=== PATIENT | female | born 2000 | race Caucasian/White ===

== ENCOUNTER 2022-08-21 08:55 | Emergency (ER) | payer SELFPAY ==
[2022-08-21 09:05] VITALS: BP 139/86; PULSE 99; TEMP 37.4; O2SAT 95; BMI 33.3
[2022-08-21] MEDS: ondansetron 2 mg/ML SDV 2 mL 4 MG IVP (09:35)
[2022-08-21] MEDS: sodium chloride 0.9% 1,000 ML 999 ML IV (09:37)
[2022-08-21 09:40] LABS: Add Urine Microscopic? YES; Bilirubin Urine Neg (Negative); Blood Urine 3+ (Negative); Glucose Urine UA Norm (Normal); Ketones Urine 2+ (Negative); Leukocyte Esterase Urine 1+ (Negative); Nitrate Urine Negative (Negative); Protein Urine Neg (Negative); Specific Gravity, Urine 1.025 (1.005-1.030); Urine Appearance SL Hazy (CLEAR); Urine Color Amber (Yellow); Urobilinogen Urine Norm (Negative); pH Urine 5 (5-7)
[2022-08-21 09:45] LABS: Add Urine Culture? Yes; Bacteria Urine 4+ /hpf; WBC Urine 0-4 /hpf (0-5)
[2022-08-21 09:50] LABS: Basophils % 0.2 %; Hematocrit 47.9 % (37.0-47.0); Hemoglobin 15.7 g/dL (11.5-15.3); Lymphocytes # 1.9 10^3/uL (0.8-4.8); Lymphocytes % 29.6 %; Mean Corpuscular HGB Conc 32.8 g/dL (30.0-36.0); Mean Corpuscular Hemoglobin 27.6 pg (28.0-34.0); Mean Corpuscular Volume 84.3 fl (81-99); Mean Platelet Volume 8.9 fL (7.4-10.4); Monocytes # 0.8 10^3/uL (0.2-0.9); Monocytes % 12.2 %; Neutrophils # 3.75 10^3/uL (1.8-7.7); Neutrophils % 57.7 %; Nucleated Red Blood Cells % 0 %; Platelet Count 322 10^3/cmm (130-400); Red Blood Count 5.68 10^6/uL (4.1-5.3); White Blood Count 6.5 10^3/uL (4.0-10.0)
--- NOTE | 2022-08-21 09:54 | ED_ITS ---
HPI - Nausea/Vomiting/Diarrhea General: Chief complaint: Nausea/Vomiting/Diarrhea Stated complaint: possible dehydration Time Seen by Provider: 08/21/22 09:09 History of Present Illness: Patient is a 22-year-old female comes to the ED with nausea and vomiting. Patient says approximately a week ago she started having decreased appetite, upper respiratory symptoms and fever. She also developed nausea and vomiting. She had multiple episodes of nausea and vomiting and was having trouble keeping any food or fluids for the past couple days. She feels like now she is very dehydrated. She tried to drink some p.o. fluids this morning and threw them back. Endorses feeling fatigued. Patient endorses being a daily delta 8 CBD user for pain and headaches. Denies any abdominal pain, diarrhea, bladder or bowel symptoms. Associated nausea: Yes Associated symtoms: Reports nausea; Denies change in vision, chest pain, dysuria, fatigue, headache(s) or palpitations Review of Systems Const: Denies: fever(s), chills or fatigue Eyes: Denies: change in vision or eye discomfort ENMT: Denies: throat pain, odynophagia, nasal discharge or nasal congestion Card: Denies: chest pain, palpitations, edema, swelling of feet/ankles, dyspnea on exertion or orthopnea Resp: Denies: dyspnea, productive cough or non-productive cough GI: Reports: nausea and vomiting; Denies: abdominal pain, diarrhea, constipation or hematochezia : Denies: flank pain, dysuria or hematuria Musc: Denies: neck pain, back pain or extremity swelling Skin/Breast: Denies: rash or new lesions Neuro: Denies: headache(s), numbness in extremities or weakness in extremities PFS ED PFSH: Medical History (Updated 08/21/22 @ 11:25 by CHARLES Cummings) No pertinent family history Surgical History (Updated 08/21/22 @ 09:57 by CHARLES Cummings) No pertinent past surgical history Physical Exam Const: COMMON NORMALS: no acute distress, patient oriented x3 and alert GENERAL APPEARANCE: cooperative and comfortable HENMT: COMMON NORMALS: normocephalic HEAD & SCALP: normocephalic MOUTH: Normal oral and palatal mucosa present and moist mucous membranes abnormal Details: parched THROAT: posterior oropharynx normal and uvula midline Neck/C-Spine: COMMON NORMALS: supple GENERAL: Yes normal visual inspection Resp: COMMON NORMALS: normal respiratory effort, No retractions, No use of accessory muscles and clear to auscultation bilaterally AUSCULTATION: clear to auscultation bilaterally Cardio: COMMON NORMALS: regular rate, regular rhythm, S1 normal heart sound present, S2 normal heart sound present, No gallops present (Cardio), No clicks present (Cardio), No murmurs present (Cardio) and Peripheral pulses 2+ throughout RATE: regular rate RHYTHM: regular rhythm HEART SOUNDS: S1 normal heart sound present and S2 normal heart sound present PERIPHERAL PULSES: Peripheral pulses 2+ throughout GI: COMMON NORMALS: Normal to inspection, nondistended, normoactive bowel sounds present, Soft to palpation, non-tender and no masses PALPATION: Yes Soft to palpation : COMMON NORMALS: Yes no CVA tenderness BLADDER/KIDNEY EXAM: Yes no CVA tenderness Back/Pelvis: COMMON NORMALS: no CVA tenderness Extremity: COMMON NORMALS: normal to inspection Neuro: COMMON NORMALS: patient oriented x3 SENSORIUM/ORIENTATION: Yes alert GAIT: Yes Normal gait present Skin: GENERAL SKIN EXAM: dry skin Course Vital Signs: Vital signs: Vital Signs Temperature 99.3 F 08/21/22 09:05 Pulse Rate 83 08/21/22 12:05 Respiratory Rate 16 08/21/22 12:05 Blood Pressure 137/90 08/21/22 11:09 Pulse Oximetry 99 08/21/22 12:05 Oxygen Delivery Me thod 08/21/22 11:09 MDM - Nausea/Vomiting/Diarrhea Medical Decision Making atient is a 22-year-old female comes to the ED with nausea and vomiting. Soo mason says approximately a week ago she started having decreased appetite, upper respiratory symptoms and fever. She also developed nausea and vomiting. She had multiple episodes of nausea and vomiting and was having trouble keeping any food or fluids for the past couple days. She feels like now she is very dehydrated. Vitals are stable and exam with labs are unremarkable. Patient was given 1 L of IV fluids and Zofran and her symptoms improved. She is able to tolerate p.o. fluids here in the ED. She was stable for discharge home and diagnosed with dehydration and viral syndrome. Lab Data I reviewed the patient's lab results. 08/21/22 09:35 08/21/22 09:35 Laboratory Results WBC 6.5 10^3/uL (4.0-10.0) 08/21/22 09:35 RBC 5.68 10^6/uL (4.1-5.3) H 08/21/22 09:35 Hgb 15.7 g/dL (11.5-15.3) H 08/21/22 09:35 Hct 47.9 % (37.0-47.0) H 08/21/22 09:35 MCV 84.3 fl (81-99) 08/21/22 09:35 MCH 27.6 pg (28.0-34.0) L 08/21/22 09:35 MCHC 32.8 g/dL (30.0-36.0) 08/21/22 09:35 RDW 13.0 % (12.1-15.1) 08/21/22 09:35 Plt Count 322 10^3/cmm (130-400) 08/21/22 09:35 MPV 8.9 fL (7.4-10.4) 08/21/22 09:35 Neut % (Auto) 57.7 % 08/21/22 09:35 Lymph % (Auto) 29.6 % 08/21/22 09:35 Carbon % (Auto) 12.2 % 08/21/22 09:35 Eos % (Auto) 0.0 % 08/21/22 09:35 Baso % (Auto) 0.2 % 08/21/22 09:35 Neut # (Auto) 3.75 10^3/uL (1.8-7.7) 08/21/22 09:35 Lymph # (Auto) 1.9 10^3/uL (0.8-4.8) 08/21/22 09:35 Carbon # (Auto) 0.8 10^3/uL (0.2-0.9) 08/21/22 09:35 Eos # (Auto) 0.0 10^3/uL (0.0-0.8) 08/21/22 09:35 Baso # (Auto) 0.0 10^3/uL (0.0-0.1) 08/21/22 09:35 Nucleated RBC % (auto) 0 % 08/21/22 09:35 Nucleated RBCs # 0.0 /100WBC 08/21/22 09:35 Sodium 135 mmol/L (136-145) L 08/21/22 09:35 Potassium 3.5 mmol/L (3.5-5.1) 08/21/22 09:35 Chloride 97 mmol/L (98-107) L 08/21/22 09:35 Carbon Dioxide 19 mmol/L (22-29) L 08/21/22 09:35 Anion Gap 22.5 (5-19) H 08/21/22 09:35 BUN 12 mg/dL (6-20) 08/21/22 09:35 Creatinine 0.9 mg/dL (0.5-0.9) 08/21/22 09:35 GFR Calculation 77.6 mL/min (90-130) L 08/21/22 09:35 Glucose 72 mg/dL (65-115) 08/21/22 09:35 Calculated Osmolality 278 mOsm/kg (285-295) L 08/21/22 09:35 Calcium 9.7 mg/dL (8.5-10.5) 08/21/22 09:35 Total Bilirubin 0.5 mg/dL (0.15-1.2) 08/21/22 09:35 AST 28 U/L (0-32) 08/21/22 09:35 ALT 31 U/L (0-33) 08/21/22 09:35 Alkaline Phosphatase 86 U/L (35-105) 08/21/22 09:35 Total Protein 8.4 g/dL (6.6-8.7) 08/21/22 09:35 Albumin 4.7 g/dL (3.5-5.2) 08/21/22 09:35 Globulin 3.7 g/dL (1.3-4.6) 08/21/22 09:35 Lipase 61 U/L (13-60) H 08/21/22 09:35 HCG, Qual Negative (Negative) 08/21/22 09:35 Urine Color [place] (Yellow) 08/21/22 09:31 Urine Appearance Sl hazy (CLEAR) A 08/21/22 09:31 Urine pH 5 (5-7) 08/21/22 09:31 Ur Specific [place] 1.025 (1.005-1.030) 08/21/22 09:31 Urine Protein Neg (Negative) 08/21/22 09:31 Urine Glucose (UA) Norm (Normal) 08/21/22 09:31 Urine Ketones 2+ (Negative) H 08/21/22 09:31 Urine Blood 3+ (Negative) H 08/21/22 09:31 Urine Nitrate Negative (Negative) 08/21/22 09:31 Urine Bilirubin Neg (Negative) 08/21/22 09:31 Urine Urobilinogen Norm mg/dL (Negative) 08/21/22 09:31 Ur Leukocyte Esterase 1+ (Negative) H 08/21/22 09:31 Urine RBC 5-10 /hpf (0-2) H 08/21/22 09:31 Urine WBC 0-4 /hpf (0-5) H 08/21/22 09:31 Ur Squamous Epith Cells 5-10 /hpf (0-5) H 08/21/22 09:31 Amorphous Sediment Not Reportable 08/21/22 09:31 Urine Bacteria 4+ /hpf (NONE) H 08/21/22 09:31 Discharge Plan Discharge Patient Disposition: Home Clinical Impression: Dehydration, Viral syndrome Condition: Stable Prescriptions: New ondansetron 4 mg tablet,disintegrating 4 mg PO Q8H PRN (Reason: nausea and vomiting) Qty: 20 0RF No Action Vitamin C 1,000 mg Tablet 1,000 mg PO DAILY omeprazole 40 mg capsule,delayed release(DR/EC) 40 mg PO DAILY cranberry 400 mg Capsule 400 mg PO DAILY Rx Instructions: administer with a meal albuterol sulfate 90 mcg/actuation HFA aerosol inhaler 2 puff INHALATION Q4H PRN (Reason: Shortness Of Breath Or Wheezing) lysine 500 mg Tablet 500 mg PO DAILY buspirone 15 mg tablet 15 mg PO TID Vitamin D3 25 mcg (1,000 unit) Tablet 25 mcg PO DAILY Daily Multi 18-400 mg-mcg Tablet 1 tab PO DAILY Probiotic 15 billion cell Capsule 1 cap PO DAILY Discharge Orders: Discharge ED (Routine); Ordered 08/21/22 Ordered By: Braulio Rivera Discharge Diet: Advance as tolerated Discharge Activity: Increase activity as tolerated Patient Instructions: Dehydration (DC), Viral Syndrome - Adult Activity Restrictions/Additional Instructions: Follow-up with medical provider as directed in the next 5 to 7 days reevaluation. Take medications as prescribed. Advance diet as tolerated make sure you drink plenty of fluids and stay hydrated. Return to the ER or your medical provider if condition worsens. Please read and understand discharge instructions. Thank you for choosing [facility] for your healthcare needs today. Please realize this is an emergency room and that we are providing you with a medical screening exam and this may not be complete and all inclusive of all the testing and or work up that you may need to determine your ailment or severity of your illness. It is very important that you follow up as instructed or that you return to the Emergency Department should you have concerns or if your condition changes or worsens in any way. Coding Level of Care Code ED Public Records Officer for Dexter Fwmarcos Exam Comprehensive
[2022-08-21 09:57] VITALS: BP 141/80; O2SAT 96
[2022-08-21 10:11] LABS: HCG, Serum Qual Negative (Negative)
[2022-08-21 10:13] LABS: Alanine Aminotransferase 31 U/L (0-33); Albumin Level 4.7 g/dL (3.5-5.2); Alkaline Phosphatase 86 U/L (35-105); Anion Gap 22.5 (5-19); Aspartate Amino Transferase 28 U/L (0-32); Blood Urea Nitrogen 12 mg/dL (6-20); Calcium 9.7 mg/dL (8.5-10.5); Carbon Dioxide 19 mmol/L (22-29); Chloride 97 mmol/L (98-107); Creatinine Clr Calc Pharmacy 108.1783; Globulin 3.7 g/dL (1.3-4.6); Glomerular Filtration Rate 77.6 mL/min (90-130); Glucose 72 mg/dL (65-115); Lipase 61 U/L (13-60); Osmolality Calculated 278 mOsm/kg (285-295); Potassium 3.5 mmol/L (3.5-5.1); Sodium 135 mmol/L (136-145); Total Bilirubin 0.5 mg/dL (0.15-1.2); Total Protein 8.4 g/dL (6.6-8.7)
[2022-08-21 11:09] VITALS: BP 137/90; O2SAT 99
[2022-08-21] MEDS: ketorolac 30 mg/mL INJ IVP (12:01)
[2022-08-21 12:05] VITALS: PULSE 83; RESP 16; O2SAT 99
== END 2022-08-21 12:07 | disposition home or self-care (01) ==
PROVIDERS: Emergency Provider Physician Assistant
DX: B34.9 Viral infection, unspecified (principal); E86.0 Dehydration
CPT/HCPCS: 80053; 81001; 83690; 84703; 85025; 87086; 96361; 96374; 96375; 99284; J1885; J2405; J7030

== ENCOUNTER 2022-10-29 18:32 | Emergency (ER) | payer SELFPAY ==
[2022-10-29] VITALS (8 sets, daily range): BP systolic 108–119; BP diastolic 60–85; PULSE 72–128; RESP 16–18; TEMP 38.2; O2SAT 95–98; BMI 31.8
--- NOTE | 2022-10-29 19:30 | XRR_ITS ---
PROCEDURE INFORMATION: Exam: XR Chest Exam date and time: 10/29/2022 7:59 PM Age: 22 years old Clinical indication: Cough and fever; Additional info: Cough; Fever n/v headache x 2-3 days. Vapes TECHNIQUE: Imaging protocol: Radiologic exam of the chest. Views: 1 view. COMPARISON: No relevant prior studies available. FINDINGS: Lungs: Unremarkable. No consolidation. Pleural spaces: Unremarkable. No pleural effusion. No pneumothorax. Heart/Mediastinum: Unremarkable. No cardiomegaly. Bones/joints: Unremarkable. XR/XR chest 1V portable [id number] IMPRESSION: No acute findings.
--- NOTE | 2022-10-29 19:33 | ED_ITS ---
HPI - Weakness General: Chief complaint: Weakness Stated complaint: n/v, fever, fatigue Time Seen by Provider: 10/29/22 19:14 Source: patient Mode of arrival: ambulatory Limitations: no limitations History of Present Illness: See nursing assessment. Patient has multiple complaints. She states that she has had fever, nausea, vomiting, fatigue, cough, nasal congestion, left upper quadrant abdominal pain, brown vaginal discharge for the past 4 days. She states that sputum has been yellow to green. She states that she noticed that she had some mild jaundice today. She denies any known exposure to hepatitis. She denies any known exposure to bad food. She states she has some swollen lymph nodes in her posterior neck. She states she had a normal brown bowel movement today. She denies any diarrhea. She states her last menses was 1 week ago. She states she has irregular periods. She also complains of sore throat. Associated symptoms: Reports fever(s), nausea and vomiting; Denies chest pain, chills, diaphoresis, dysuria or headache(s) Review of Systems Const: Reports: fever(s), body aches and fatigue; Denies: chills or diaphoresis Eyes: Reports: yellow eyes; Denies: change in vision, blurry vision or photophobia ENMT: Reports: throat pain; Denies: uvular edema or hoarseness Card: Denies: chest pain, palpitations or edema Resp: Reports: productive cough (Green-yellow sputum); Denies: dyspnea or wheezing GI: Reports: abdominal pain (Mild left upper quadrant abdominal pain), nausea and vomiting; Denies: hematemesis, diarrhea, constipation or hematochezia : Denies: flank pain, difficulty voiding or dysuria Musc: Denies: neck pain, back pain, extremity pain, extremity swelling or joint pain Skin/Breast: Reports: other (Mild jaundice); Denies: rash, pruritus or erythema Neuro: Denies: headache(s), numbness in extremities, weakness in extremities or sensory changes Psych: Reports: anxiety; Denies: depression Carlos/Lymph: Denies: enlarged lymph nodes PFS ED PFSH: Medical History No pertinent family history Surgical History No pertinent past surgical history Supplemental [facility] Information: Denies tobacco or alcohol use. Denies any illicit drug use or IV drug abuse. Physical Exam Const: COMMON NORMALS: no acute distress, patient oriented x3, no limitations and well nourished GENERAL APPEARANCE: cooperative OTHER: Moderate anxiety, very talkative. HENMT: COMMON NORMALS: normocephalic and atraumatic HEAD & SCALP: normocephalic and atraumatic FACE & SINUS: normal facial exam THROAT: no uvular edema OTHER: Mild erythema of the tonsils. No exudate. Eye: COMMON NORMALS: EOMs intact bilaterally OTHER: Pupils equal round reactive light. There is trace scleral icterus. Neck/C-Spine: COMMON NORMALS: full ROM, supple and no meningeal signs GENERAL: Yes normal visual inspection OTHER: Slight shotty lymphadenopathy in the posterior cervical chain. Lymph: OTHER: Slight shotty lymphadenopathy in posterior cervical chain. Chest: COMMONS NORMALS: normal inspection of the chest and normal palpation of entire chest wall CHEST: No Ecchymosis present and No rash Resp: COMMON NORMALS: normal respiratory effort, No retractions and clear to auscultation bilaterally EFFORT & INSPECTION: No respiratory distress AUSCULTATION: clear to auscultation bilaterally Cardio: COMMON NORMALS: regular rhythm and Peripheral pulses 2+ throughout JUGULAR VENOUS DISTENTION: no JVD RATE: tachycardic RHYTHM: regular rhythm PERIPHERAL PULSES: Peripheral pulses 2+ throughout OTHER: Peripheral pulses normal. Capillary fill normal. GI: COMMON NORMALS: Normal to inspection, nondistended, normoactive bowel sounds present OTHER: Mild left upper quad abdominal pain. No guarding or rebound. Normoactive bowel sounds throughout. Abdomen soft : COMMON NORMALS: Yes no CVA tenderness BLADDER/KIDNEY EXAM: Yes no CVA tenderness Back/Pelvis: COMMON NORMALS: no CVA tenderness Extremity: COMMON NORMALS: normal to inspection, full ROM and capillary refill normal Neuro: COMMON NORMALS: patient oriented x3, CN's II-XII intact bilaterally, no focal motor deficits and no sensory deficits noted MENINGEAL SIGNS: Yes no meningeal signs Psych: COMMON NORMALS: mental status grossly normal and Normal thought process present THOUGHT PROCESS: Normal thought process present OTHER: Anxious. Talkative. Skin: COMMON NORMALS: no rashes or lesions noted and no wounds GENERAL SKIN EXAM: no rashes or lesions noted Course Vital Signs: Vital signs: Vital Signs Temperature 100.8 F H 10/29/22 18:39 Pulse Rate 111 H 10/29/22 21:00 Respiratory Rate 18 10/29/22 21:00 Blood Pressure 112/61 10/29/22 22:30 Pulse Oximetry 97 10/29/22 22:00 Oxygen Delivery Me thod 10/29/22 19:50 MDM - Weakness Medical Decision Making Patient with multitude of complaints. Patient does have fever. Patient does have slight jaundice. Patient with acute hepatitis unknown cause, normal lipase, hyperbilirubinemia Acute hepatitis panel was negative. Negative strep, flu, COVID test. Due to atypical lymphs and normal hepatitis screen, normal ultrasound liver, will obtain monotest. Patient tested positive for mononucleosis. We will treat with steroids to help with inflammatory changes. I encourage patient to follow-up with primary care doctor later this week for recheck of transaminitis. Lab Data 10/29/22 20:00 10/29/22 20:00 Radiology Impressions Chest X-Ray 10/29/22 19:30 IMPRESSION: No acute findings. Abdomen Ultrasound 10/29/22 21:01 IMPRESSION: No acute findings. Laboratory Results WBC 13.6 10^3/uL (4.0-10.0) H 10/29/22 20:00 RBC 4.66 10^6/uL (4.1-5.3) 10/29/22 20:00 Hgb 13.1 g/dL (11.5-15.3) 10/29/22 20:00 Hct 38.9 % (37.0-47.0) 10/29/22 20:00 MCV 83.5 fl (81-99) 10/29/22 20:00 MCH 28.1 pg (28.0-34.0) 10/29/22 20:00 MCHC 33.7 g/dL (30.0-36.0) 10/29/22 20:00 RDW 13.6 % (12.1-15.1) 10/29/22 20:00 Plt Count 193 10^3/cmm (130-400) 10/29/22 20:00 MPV 10.9 fL (7.4-10.4) H 10/29/22 20:00 Lymph % (Auto) Not Reportable 10/29/22 20:00 [place] % (Auto) Not Reportable 10/29/22 20:00 Lymph # (Auto) Not Reportable 10/29/22 20:00 [place] # (Auto) Not Reportable 10/29/22 20:00 Total Counted 100 (0-100) 10/29/22 20:00 Atypical Lymphs % 20.0 % (0-5) H 10/29/22 20:00 Absolute Neutrophils 4.8 10^3/cmm (1.4-6.5) 10/29/22 20:00 Segmented Neutrophils 27 % 10/29/22 20:00 Abs Segm Neuts (Man) 3.7 10/cmm (1.6-7.1) 10/29/22 20:00 Band Neutrophils 8.0 % 10/29/22 20:00 Abs Band Neuts (Man) 1.1 10^3/cmm (0.0-1.2) 10/29/22 20:00 Absolute Lymphocytes 5.7 10^3/cmm (1.2-3.4) H 10/29/22 20:00 Lymphocytes (Manual) 22 % 10/29/22 20:00 Monocytes (Manual) 3.0 % 10/29/22 20:00 Absolute Monocytes 0.4 10^3/cmm (0.1-0.6) 10/29/22 20:00 Eosinophils (Manual) Not Reportable 10/29/22 20:00 Absolute Eosinophils 0.0 10^3/cmm (0.0-0.7) 10/29/22 20:00 Basophils (Manual) Not Reportable 10/29/22 20:00 Absolute Basophils 0.0 10^3/cmm (0.0-0.2) 10/29/22 20:00 Metamyelocytes 2.0 % 10/29/22 20:00 Myelocytes 15.0 % 10/29/22 20:00 Blast Cells 3 % (0-0) H* 10/29/22 20:00 Platelet Estimate Normal (Normal) 10/29/22 20:00 Rouleaux 1+ H 10/29/22 20:00 Sodium 133 mmol/L (136-145) L 10/29/22 20:00 Potassium 4.9 mmol/L (3.5-5.1) 10/29/22 20:00 Chloride 96 mmol/L (98-107) L 10/29/22 20:00 Carbon Dioxide 22 mmol/L (22-29) 10/29/22 20:00 Anion Gap 19.9 (5-19) H 10/29/22 20:00 BUN 12 mg/dL (6-20) 10/29/22 20:00 Creatinine 0.5 mg/dL (0.5-0.9) 10/29/22 20:00 GFR Calculation 152.9 mL/min (90-130) H 10/29/22 20:00 Glucose 90 mg/dL (65-115) 10/29/22 20:00 Calculated Osmolality 275 mOsm/kg (285-295) L 10/29/22 20:00 Lactic Acid 1.8 mmol/L (0.5-2.2) 10/29/22 20:00 Calcium 9.0 mg/dL (8.5-10.5) 10/29/22 20:00 Total Bilirubin 9.7 mg/dL (0.15-1.2) H* 10/29/22 20:00 AST 252 U/L (0-32) H 10/29/22 20:00 ALT 298 U/L (0-33) H 10/29/22 20:00 Alkaline Phosphatase 340 U/L (35-105) H 10/29/22 20:00 Total Protein 7.2 g/dL (6.6-8.7) 10/29/22 20:00 Albumin 4.0 g/dL (3.5-5.2) 10/29/22 20:00 Globulin 3.2 g/dL (1.3-4.6) 10/29/22 20:00 Lipase 36 U/L (13-60) 10/29/22 20:00 HCG, Qual Negative (Negative) 10/29/22 20:00 Hepatitis A IgM Ab Non-reactive (Nonreactive) 10/29/22 20:00 Hep Bs Antigen Non-reactive (Nonreactive) 10/29/22 20:00 Hep B Core IgM Ab Non-reactive (Nonreactive) 10/29/22 20:00 Hepatitis C Antibody Non-reactive (Nonreactive) 10/29/22 20:00 Monoscreen Postitve (Negative) H 10/29/22 20:00 Influenza Type A Ag negative (Negative) 10/29/22 19:35 Influenza Type B Ag negative (Negative) 10/29/22 19:35 SARS-CoV-2 Ag (Rapid) negative (Negative) 10/29/22 19:35 Group A Strep Rapid Negative (Negative) 10/29/22 20:30 Imaging Data CXR: I personally reviewed and interpreted this imaging study as follows: My impression: Chest x-ray appears normal. No infiltrates, effusions, or pneumothorax. Radiologist's impression: PROCEDURE INFORMATION: Exam: XR Chest Exam date and time: 10/29/2022 7:59 PM Age: 22 years old Clinical indication: Cough and fever; Additional info: Cough; Fever n/v headache x 2-3 days. Vapes TECHNIQUE: Imaging protocol: Radiologic exam of the chest. Views: 1 view. COMPARISON: No relevant prior studies available. FINDINGS: Lungs: Unremarkable. No consolidation. Pleural spaces: Unremarkable. No pleural effusion. No pneumothorax. Heart/Mediastinum: Unremarkable. No cardiomegaly. Bones/joints: Unremarkable. XR/XR chest 1V portable [id number] IMPRESSION: No acute findings. ? Dictated By: Ruddy Wright DO Signed By: Ruddy Wright DO Signed Date/Time: 10/29/222055 US: Radiologist's impression: PROCEDURE INFORMATION: Exam: US Abdomen, Limited; Right Upper Quadrant Exam date and time: 10/29/2022 9:14 PM Age: 22 years old Clinical indication: Abdominal tenderness; Patient HX: Febrile 100.8f highly elevated tbili = 9.7, elevated ast = 252, elevated alt = 298, elevated alkphos = 340, nomal lipase, neg hcg; Additional info: Upper abd pain; Transaminitis; Bilirubin 9.7, normal lipase TECHNIQUE: Imaging protocol: Real time ultrasound of the abdomen with image documentation. Limited exam focused on the right upper quadrant. COMPARISON: No relevant prior studies available. FINDINGS: Liver: Normal. No masses. Gallbladder: Contracted gallbladder. No gallstones. There is no gallbladder wall thickening. Biliary ducts: Normal. No stones. No dilation. Pancreas: Visualized pancreas is unremarkable. Right kidney: The right kidney measures 11.5 cm in length. No mass. No hydronephrosis. US/US abdomen limited [id number] IMPRESSION: No acute findings. ? Dictated By: Ruddy Wright DO Signed By: Ruddy Wright DO Signed Date/Time: 10/29/222149 Discharge Plan Discharge Patient Disposition: Home Clinical Impression: Transaminitis, Hyperbilirubinemia, Acute upper abdominal pain Mononucleosis Qualifiers: Infectious mononucleosis etiology: unspecified organism Infectious mononucleosis complication: other complications Qualified Code(s): B27.99 - Infectious mononucleosis, unspecified with other complication Nausea & vomiting Qualifiers: Vomiting type: unspecified Qualified Code(s): R11.2 - Nausea with vomiting, unspecified Fever Qualifiers: Fever type: unspecified Qualified Code(s): R50.9 - Fever, unspecified Condition: Stable Prescriptions: New Medrol (Brennen) 4 mg tablets,dose pack 4 mg PO DAILY Qty: 21 0RF ondansetron 4 mg tablet,disintegrating 4 mg PO Q6H PRN (Reason: nausea and vomiting) Qty: 10 1RF No Action Vitamin C 1,000 mg Tablet 1,000 mg PO DAILY omeprazole 40 mg capsule,delayed release(DR/EC) 40 mg PO DAILY cranberry 400 mg Capsule 400 mg PO DAILY Rx Instructions: administer with a meal albuterol sulfate 90 mcg/actuation HFA aerosol inhaler 2 puff INHALATION Q4H PRN (Reason: Shortness Of Breath Or Wheezing) lysine 500 mg Tablet 500 mg PO DAILY buspirone 15 mg tablet 15 mg PO TID Vitamin D3 25 mcg (1,000 unit) Tablet 25 mcg PO DAILY Daily Multi 18-400 mg-mcg Tablet 1 tab PO DAILY Probiotic 15 billion cell Capsule 1 cap PO DAILY ondansetron 4 mg tablet,disintegrating 4 mg PO Q8H PRN (Reason: nausea and vomiting) Qty: 20 0RF Discharge Orders: Discharge ED (Routine); Ordered 10/29/22 Ordered By: Denis Villaseñor Discharge Diet: Advance as tolerated Discharge Activity: Increase activity as tolerated Patient Instructions: Ibuprofen (By mouth), Fever - Adult, Mononucleosis (ED), Liver Disease Diet (DC), Viral Syndrome (ED), Abdominal Pain (ED), Jaundice (ED), Opioid Safety, Pain Management Activity Restrictions/Additional Instructions: Drink only fluids. Stay hydrated. Since you have some moderately elevated liver enzymes, avoid Tylenol products for now. May take ibuprofen for fever. May take up to 600 mg of ibuprofen every 6-8 hours with food as needed for fever or discomfort. Follow-up with family doctor later this week for evaluation of elevated liver enzymes. Avoid any contact sports since she may have enlargement of your spleen. May follow-up with [facility] as needed. You may have fatigue for 2 to 3 months. lab results as below: WBC?13.6 10^3/uL (4.0-10.0)? H010/29/22? 20:00? ?RBC?4.66 10^6/uL (4.1- 5.3)?10/29/22? 20:00? ?Hgb?13.1 g/dL (11.5-15.3)?10/29/22? 20:00? ?Hct?38.9 % (37.0-47.0)?10/29/22? 20:00? ?MCV?83.5 fl (81-99)?10/29/22? 20:00? ?MCH?28.1 pg (28.0-34.0)?10/29/22? 20:00? ?MCHC?33.7 g/dL (30.0-36.0)?10/29/22? 20:00? ?RDW?13.6 % (12.1-15.1)?10/29/22? 20:00? ?Plt Count?193 10^3/cmm (130- 400)?10/29/22? 20:00? ?MPV?10.9 fL (7.4-10.4)? 10/29/22? 20:00? ?Lymph % (Auto)?Not Reportable?10/29/22? 20:00? ?[place] % (Auto)?Not Reportable?10/29/22? 20:00? ?Lymph # (Auto)?Not Reportable?10/29/22? 20:00? ?[place] # (Auto)?Not Reportable?10/29/22? 20:00? ?Total Counted?100? (0-100)?10/29/22? 20:00? ?Atypical Lymphs %?20.0 % (0-5)? H010/29/22? 20:00? ?Absolute Neutrophils?4.8 10^3/cmm (1.4-6.5)?10/29/22? 20:00? ?Segmented Neutrophils?27 %10/29/22? 20:00? ?Abs Segm Neuts (Man)?3.7 10/cmm (1.6-7.1)?10/29/22? 20:00? ?Band Neutrophils?8.0 %10/29/22? 20:00? ?Abs Band Neuts (Man)?1.1 10^3/cmm (0.0- 1.2)?10/29/22? 20:00? ?Absolute Lymphocytes?5.7 10^3/cmm (1.2-3.4)? H010/29/22? 20:00? ?Lymphocytes (Manual)?22 %10/29/22? 20:00? ?Monocytes (Manual)?3.0 %10/29/22? 20:00? ?Absolute Monocytes?0.4 10^3/cmm (0.1-0.6)?10/29/22? 20:00? ?Eosinophils (Manual)?Not Reportable?10/29/22? 20:00? ?Absolute Eosinophils?0.0 10^3/cmm (0.0-0.7)?10/29/22? 20:00? ?Basophils (Manual)?Not Reportable?10/29/22? 20:00? ?Absolute Basophils?0.0 10^3/cmm (0.0-0.2)?10/29/22? 20:00? ? Metamyelocytes?2.0 %10/29/22? 20:00? ?Myelocytes?15.0 %10/29/22? 20:00? ?Blast Cells?3 % (0-0)? H*10/29/22? 20:00? ?Platelet Estimate?Normal? (Normal)?10/29/22? 20:00? ?Rouleaux?1+? H010/29/22? 20:00? ?Sodium?133 mmol/L (136-145)? L10/29/22? 20:00? ?Potassium?4.9 mmol/L (3.5-5.1)?10/29/22? 20:00? ?Chloride?96 mmol/L (98-107)? 10/29/22? 20:00? ?Carbon Dioxide?22 mmol/L (22- 29)?10/29/22? 20:00? ?Anion Gap?19.9? (5-19)? 10/29/22? 20:00? ?BUN?12 mg/dL (6-20)?10/29/22? 20:00? ?Creatinine?0.5 mg/dL (0.5-0.9)?10/29/22? 20:00? ?GFR Calculation?152.9 mL/min (90-130)? 10/29/22? 20:00? ?Glucose?90 mg/dL (65- 115)?10/29/22? 20:00? ?Calculated Osmolality?275 mOsm/kg (285-295)? 10/29/22? 20:00? ?Lactic Acid?1.8 mmol/L (0.5-2.2)?10/29/22? 20:00? ?Calcium?9.0 mg/dL (8.5-10.5)?10/29/22? 20:00? ?Total Bilirubin?9.7 mg/dL (0.15-1.2)? H*10/29/22? 20:00? ?AST?252 U/L (0-32)? 10/29/22? 20:00? ?ALT?298 U/L (0-33)? 10/29/22? 20:00? ?Alkaline Phosphatase?340 U/L (35-105)? 10/29/22? 20:00? ?Total Protein?7.2 g/dL (6.6-8.7)?10/29/22? 20:00? ?Albumin?4.0 g/dL (3.5- 5.2)?10/29/22? 20:00? ?Globulin?3.2 g/dL (1.3-4.6)?10/29/22? 20:00? ?Lipase?36 U/L (13-60)?10/29/22? 20:00? ?HCG, Qual?Negative? (Negative)?10/29/22? 20:00? ?Hepatitis A IgM Ab?Non-reactive? (Nonreactive)?10/29/22? 20:00? ?Hep Bs Antigen?Non-reactive? (Nonreactive)?10/29/22? 20:00? ?Hep B Core IgM Ab?Non- reactive? (Nonreactive)?10/29/22? 20:00? ?Hepatitis C Antibody?Non-reactive? (Nonreactive)?10/29/22? 20:00? ?Monoscreen?Postitve? (Negative)? H010/29/22? 20:00? ?Influenza Type A Ag?negative? (Negative)?10/29/22? 19:35? ?Influenza Type B Ag?negative? (Negative)?10/29/22? 19:35? ?SARS-CoV-2 Ag (Rapid)?negative? (Negative)?10/29/22? 19:35? ?Group A Strep Rapid?Negative? (Negative)?10/29/22? 20:30? ? Coding Level of Care Code ED Chief Architect for [facility]
[2022-10-29] MEDS: sodium chloride 0.9% 1,000 ML 999 ML IV (20:03)
[2022-10-29] MEDS: ondansetron 2 mg/ML SDV 2 mL 4 MG IVP (20:03)
[2022-10-29] MEDS: acetaminophen 500 mg Tablet PO (20:03)
[2022-10-29 20:25] LABS: SARS Covid-2 Antigen negative (Negative)
[2022-10-29 20:26] LABS: Influenza A by IFA negative (Negative); Influenza B by IFA negative (Negative)
[2022-10-29 20:41] LABS: HCG, Serum Qual Negative (Negative)
[2022-10-29 20:46] LABS: Lactic Sepsis W/Reflex 1.8 mmol/L (0.5-2.2)
[2022-10-29 20:47] LABS: Alanine Aminotransferase 298 U/L (0-33); Alkaline Phosphatase 340 U/L (35-105); Blood Urea Nitrogen 12 mg/dL (6-20); Carbon Dioxide 22 mmol/L (22-29); Chloride 96 mmol/L (98-107); Globulin 3.2 g/dL (1.3-4.6); Glomerular Filtration Rate 152.9 mL/min (90-130); Glucose 90 mg/dL (65-115); Lipase 36 U/L (13-60); Osmolality Calculated 275 mOsm/kg (285-295); Sodium 133 mmol/L (136-145); Total Protein 7.2 g/dL (6.6-8.7)
[2022-10-29 20:51] LABS: Anion Gap 19.9 (5-19); Aspartate Amino Transferase 252 U/L (0-32); Potassium 4.9 mmol/L (3.5-5.1)
[2022-10-29 20:56] LABS: Total Bilirubin 9.7 mg/dL (0.15-1.2)
--- NOTE | 2022-10-29 21:01 | USR_ITS ---
PROCEDURE INFORMATION: Exam: US Abdomen, Limited; Right Upper Quadrant Exam date and time: 10/29/2022 9:14 PM Age: 22 years old Clinical indication: Abdominal tenderness; Patient HX: Febrile 100.8f highly elevated tbili = 9.7, elevated ast = 252, elevated alt = 298, elevated alkphos = 340, nomal lipase, neg hcg; Additional info: Upper abd pain; Transaminitis; Bilirubin 9.7, normal lipase TECHNIQUE: Imaging protocol: Real time ultrasound of the abdomen with image documentation. Limited exam focused on the right upper quadrant. COMPARISON: No relevant prior studies available. FINDINGS: Liver: Normal. No masses. Gallbladder: Contracted gallbladder. No gallstones. There is no gallbladder wall thickening. Biliary ducts: Normal. No stones. No dilation. Pancreas: Visualized pancreas is unremarkable. Right kidney: The right kidney measures 11.5 cm in length. No mass. No hydronephrosis. US/US abdomen limited [id number] IMPRESSION: No acute findings.
[2022-10-29 21:16] LABS: Hematocrit 38.9 % (37.0-47.0); Hemoglobin 13.1 g/dL (11.5-15.3); Mean Corpuscular HGB Conc 33.7 g/dL (30.0-36.0); Mean Corpuscular Hemoglobin 28.1 pg (28.0-34.0); Mean Corpuscular Volume 83.5 fl (81-99); Mean Platelet Volume 10.9 fL (7.4-10.4); Platelet Count 193 10^3/cmm (130-400); Red Blood Count 4.66 10^6/uL (4.1-5.3); Red Cell Distribution Width 13.6 % (12.1-15.1); White Blood Count 13.6 10^3/uL (4.0-10.0)
[2022-10-29 21:21] LABS: Slide Review Slide Review Perform
[2022-10-29 21:22] LABS: Absolute Segmented Neutrophil 3.7 10/cmm (1.6-7.1); Band Neutrophils Absolute 1.1 10^3/cmm (0.0-1.2); Lymphocytes 22 %; Monocytes Absolute 0.4 10^3/cmm (0.1-0.6); Segmented Neutrophils 27 %; Total Cells Counted 100 (0-100)
[2022-10-29 21:23] LABS: Hepatitis A Antibody IgM Non-Reactive (Nonreactive); Hepatitis B Core IgM Non-Reactive (Nonreactive); Hepatitis B Surface Antigen Non-Reactive (Nonreactive); Hepatitis C Virus Antibody Non-Reactive (Nonreactive); Lymphocytes Absolute 5.7 10^3/cmm (1.2-3.4)
[2022-10-29 21:24] LABS: Absolute Neutrophil 4.8 10^3/cmm (1.4-6.5); Blastocytes 3 % (0-0); Platelet Estimate Normal (Normal)
[2022-10-29 21:26] LABS: Rouleau 1+
[2022-10-29 21:30] LABS: Rapid Strep A Test Negative (Negative)
[2022-10-29] MEDS: dexamethasone 10 mg/mL INJ IVP (23:10)
== END 2022-10-29 23:08 | disposition home or self-care (01) ==
PROVIDERS: Emergency Provider Family Medicine
DX: B27.99 Infectious mononucleosis, unspecified with other complication (principal); R11.2 Nausea with vomiting, unspecified; R50.9 Fever, unspecified; R10.10 Upper abdominal pain, unspecified; R74.01 Elevation of levels of liver transaminase levels; E80.6 Other disorders of bilirubin metabolism; Z20.822 Contact with and (suspected) exposure to COVID-19
CPT/HCPCS: 36415; 71045; 76705; 80053; 80074; 80503; 83605; 83690; 84703; 85007; 85025; 86308; 87040; 87081; 87426; 87804; 87880; 96361; 96374; 96375; 99284; J1100; J2405; J7030